=== PATIENT | male | born 1965 | race Caucasian/White ===

== ENCOUNTER 2016-06-28 06:48 | Observation (INO) | payer BC ==
[2016-06-23 13:15] LABS: HEMATOCRIT 38.6 % (40.0-51.0)
[2016-06-23 13:29] LABS: BUN (BLOOD UREA NITROGEN) 13 MG/DL (6-23); CALCIUM, SERUM 9.1 MG/DL (8.5-10.4); CHLORIDE, SERUM 107 MMOL/L (96-112); CO2 (CARBON DIOXIDE) 28 MMOL/L (24-34); CREATININE 1.02 MG/DL (0.70-1.30); GFR AFRICAN AMERICAN 99 ML/MIN (>=60); GFR NON AFRICAN AMERICAN 85 ML/MIN (>=60); GLUCOSE, SERUM 118 MG/DL (60-99); POTASSIUM, SERUM 4.5 MMOL/L (3.5-5.3); SODIUM, SERUM 143 MMOL/L (135-148)
--- NOTE | ~2016-06-28 | OP ---
Record Of Operation [facility] [address] [place]. [address] NAME: MANNY COOPER : 65 STATUS : ADM IN [facility]#: [id number] AGE: 50 ADM/REG DATE : 06/28/16 MR#: [id number] REPORT SERV DATE: 06/29/16 DICTATED BY: SANA HAWTHORNE II DATE: 06/29/16 REPORT STATUS : Draft TRANSCRIBED BY: MODLawrence DATE: 06/29/16 DATE OF PROCEDURE: 06/28/2016 PREOPERATIVE DIAGNOSES: 1. Cervical spondylotic myelopathy. 2. Cord compression C5-6, C6-7. POSTOPERATIVE DIAGNOSES: 1. Cervical spondylotic myelopathy. 2. Cord compression C5-6, C6-7. PROCEDURES: 1. C6 corpectomy for anterior extradural decompression. 2. Interbody arthrodesis, C5-6, C6-7. 3. Application of prosthetic devices, C5-6, C6-7. 4. Anterior instrumentation, C5-6, C6-7. 5. Use of local autograft, allograft substitute, and bone marrow aspirate. 6. Use of the microscope. SURGEON: Sana Hawthorne M.D. FLUIDS REPLACED: 1750 mL LR. ESTIMATED BLOOD LOSS: 30 mL. DRAINS: One drain. COMPLICATIONS: None. IMPLANTS: Globus. PREOPERATIVE HISTORY: This is very friendly 50-year-old gentleman, who works at [employer], who reports some neck pain, but predominantly significant numbness and tingling radiating into his arms especially hands. He does report some clumsiness with his hands in manual dexterity. He also reports significant numbness in his leg. He was found to have significant clonus in his lower extremities and hyperreflexia in upper and lower extremities. He was found to have significant cord compression as well. We discussed the merits of surgery versus observation for cervical myelopathy. He understood the risks and the benefits of the surgery versus the natural history of the cervical myelopathy. DESCRIPTION OF PROCEDURE: After informed consent was obtained, the patient was brought to the operating room at his request and general anesthesia achieved. He was placed in supine position. The neck and iliac crest prepped and draped in a sterile fashion. A 5 mL of bone marrow were aspirated from the right iliac crest followed by a right-sided longitudinal incision. The retropharyngeal approach was performed followed by subperiosteal exposure. The [employer] retractors were placed underneath the longus colli muscles. Record Of Operation [facility] [address]. [address] NAME: MANNY COOPER : 65 STATUS : ADM IN PAT#: [id number] AGE: 50 ADM/REG DATE : 06/28/16 MR#: [id number] REPORT SERV DATE: 06/29/16 DICTATED BY: SANA HAWTHORNE II DATE: 06/29/16 REPORT STATUS : Draft TRANSCRIBED BY: MODLawrence DATE: 06/29/16 Bruno pins were placed into C5 and C7. Gentle distraction was performed. The microscope was brought into place and under microscopic visualization, the disk was removed at C5-6 and C6-7. The endplates were denuded of their cartilage. Parallel endplates were created at C5 and C7. Next, the corpectomy was now initiated with the high-speed aung to create the lateral boundaries of the corpectomy. The rongeur was now used to harvest local autograft, and began the corpectomy of C6. Under microscopic visualization, the remainder of the posterior vertebral body was now removed with the high-speed bur. The posterior longitudinal ligament was now identified and removed, and the foraminotomy was completed at C5-6 and C6-7. The severe central stenosis was alleviated and the dura now found to be much more expansile once the corpectomy was completed. Following irrigation the cord was confirmed to be well decompressed and severe stenosis now eliminated. Next, the prosthetic device was trialed and chosen, and placed at C5-6 and C6-7. This was a PEEK corpectomy device. The device contained local autograft, as well as bone marrow aspirate. Next, the anterior instrumentation was applied (Globus). Two screws were placed in the C5 and C7. Multiplanar imaging confirmed acceptable placement of the implants. We also placed one screw through the plate into the corpectomy cage to help with fixation. A deep drain was placed followed by standard closure and the patient was extubated and transferred to PACU in stable condition. MIREILLE/DIEGO Sana Hawthorne II, M.D. / [id number] CC: Sheila Hickey II, MD
[~2016-06-28 06:48] MED LIST: LOP50 PO; MOBIC15 MG PO; PRILO PO; PRINZIDE1 TA1 PO; VITC500 PO; ZOCOR20 PO
[2016-06-29] MEDS ORDERED: PCET PO (14:53)
[2016-06-29] MEDS ORDERED: V5 PO (14:53)
[2016-06-29] MEDS ORDERED: V2 PO (14:54)
== END 2016-06-29 15:28 | disposition home or self-care (01) ==
LOC: SDC 06:48 → 3SO 13:52
PROVIDERS: Orthopaedic Surgery
PROC: 0RG20J0 Fusion of 2 or more Cervical Vertebral Joints with Synthetic Substitute, Anterior Approach, Anterior Column, Open Approach (ICD-10-PCS; 2016-06-28)
PROC: 0RB30ZZ Excision of Cervical Vertebral Disc, Open Approach (ICD-10-PCS; 2016-06-28)
PROC: 079T3ZX Drainage of Bone Marrow, Percutaneous Approach, Diagnostic (ICD-10-PCS; 2016-06-28)
PROC: 0RG20A0 Fusion of 2 or more Cervical Vertebral Joints with Interbody Fusion Device, Anterior Approach, Anterior Column, Open Approach (ICD-10-PCS; principal; 2016-06-28 09:00)
PROC: 0RG2070 Fusion of 2 or more Cervical Vertebral Joints with Autologous Tissue Substitute, Anterior Approach, Anterior Column, Open Approach (ICD-10-PCS; 2016-06-28 09:00)
DX: M47.12 Other spondylosis with myelopathy, cervical region (principal); G95.20 Unspecified cord compression; K21.9 Gastro-esophageal reflux disease without esophagitis; M10.9 Gout, unspecified; I10 Essential (primary) hypertension; F17.210 Nicotine dependence, cigarettes, uncomplicated; E66.9 Obesity, unspecified; E78.5 Hyperlipidemia, unspecified; Z79.899 Other long term (current) drug therapy; Z68.36 Body mass index [BMI] 36.0-36.9, adult
CPT/HCPCS: 80048; 82962; 85014; 85018; 87641; 88304; 88311; 93005; 96374; 96375; 96376; A9270-GY; C1713; G0378; J0690; J1170; J2250; J2405; J2710; J3010